=== PATIENT | male | born 1970 | race Caucasian/White ===

== ENCOUNTER 2017-12-16 09:32 | Outpatient (CLI) | payer OTHER ==
[2017-12-16 11:05] LABS: #Basophils 0.1 thou/uL (0.0-0.2); #Eosinphils 0.6 thou/uL (0.0-0.7); #Lymphocytes 2.2 thou/uL (1.20-3.40); #Monocytes 0.6 thou/uL (0.11-0.59); #Neutrophils 2.5 thou/uL (1.40-6.50); %Basophils 1.2 % (0.0-1.0); %Eosinophils 10.1 % (0.0-10.0); %Lymphocytes 37.8 % (21.0-51.0); %Monocytes 9.3 % (0.0-10.0); %Neutrophils 41.6 % (42.0-75.0); Hemoglobin 14.7 g/dL (14.0-18.0); Mean Corpuscular HGB CONC 35.2 g/dL (32.0-36.0); Mean Corpuscular Hemoglobin 31.2 pg (27.0-31.0); Mean Corpuscular Volume 88.7 fl (80.0-94.0); Platelet Count 213 thou/uL (130-400); RBC Distribution Width 12.5 % (11.5-14.5); Red Blood Cell (RBC) Count 4.72 mill/uL (4.70-6.10); White Blood Cell (WBC) Count 5.9 thou/uL (4.8-10.8)
[2017-12-16 11:24] LABS: Anion Gap 10 mmol/L (10-20); BUN (Urea Nitrogen) 12 mg/dL (8.9-20.6); Calc. Creatinine Clearance 0 mL/min (70-130); Calcium 9.4 mg/dL (7.8-10.44); Carbon Dioxide 29 mmol/L (22-29); Chloride 105 mmol/L (98-107); Estimated GFR-MDRD Greater than 90; Glucose 101 mg/dL (70-105); Sodium 140 mmol/L (136-145)
--- NOTE | 2017-12-17 07:22 | EKG ---
Test Reason : Blood Pressure : / mmHG Vent. Rate : 075 BPM Atrial Rate : 075 BPM P-R Int : 152 ms QRS Dur : 086 ms QT Int : 378 ms P-R-T Axes : 069 059 007 degrees QTc Int : 422 ms Normal sinus rhythm minimal inferior ST changes No previous ECGs available Confirmed by DR. Denis HERRMANN ([id number]) on 12/17/2017 7:22:00 AM Referred By: IERO Confirmed By:DR. Denis HERRMANN
== END 2017-12-16 09:33 | disposition home or self-care (01) ==
LOC: LABBT 09:32
PROVIDERS: ATTEND Orthopaedic Surgery
DX: Z01.818 Encounter for other preprocedural examination (principal); S83.206A Unspecified tear of unspecified meniscus, current injury, right knee, initial encounter
CPT/HCPCS: 80048; 85025; 93005; 93010

== ENCOUNTER 2017-12-20 09:22 | Day surgery (SDC) | payer OTHER ==
[2017-12-16 09:47] VITALS: BMI 24.3
[2017-12-20] MEDS ORDERED: PROPOFOL 20 ML ONE (09:30)
[2017-12-20] MEDS ORDERED: CEFAZOLIN/Water 2 GM/20 ML SYRINGE ONE (10:10)
[2017-12-20] MEDS ORDERED: Fentanyl 100 MCG/2 ML VIAL ONE (10:27)
[2017-12-20] MEDS ORDERED: Ondansetron HCl/PF 4 MG/2 ML Vial ONE ×2 (10:27→11:59)
[2017-12-20] MEDS ORDERED: Midazolam HCl 2 mg/2 ml Vial ONE (10:27)
[2017-12-20] MEDS ORDERED: Lidocaine 2% w/Epinephrine 1:200K 20 ML VIAL ONE (11:43)
[2017-12-20] MEDS ORDERED: Bupivacaine HCl 0.5%/Epinephrine 1:200,000/PF 30 ml Vial ONE (11:43)
[2017-12-20] MEDS ORDERED: Dexamethasone 20 MG/5 ML VIAL ONE (11:59)
[2017-12-20] MEDS ORDERED: Lidocaine 1% PF 5 ML VIAL ONE (11:59)
[2017-12-20] MEDS ORDERED: Ketorolac Tromethamine 30 MG/ML VIAL ONE (11:59)
[2017-12-20] MEDS ORDERED: PROPOFOL 200 MG/20 ML VIAL ONE (11:59)
--- NOTE | 2017-12-20 12:39 | OP ---
DATE OF PROCEDURE: 12/20/2017 PREOPERATIVE DIAGNOSIS: Right knee complex tear posterior horn of the medial meniscus. POSTOPERATIVE DIAGNOSIS: Right knee complex tear posterior horn of the medial meniscus. PROCEDURE PERFORMED: Right knee arthroscopy, partial medial meniscectomy. SURGEON: Juan Luis Deal M.D. SOFTWARE IMPLEMENTATION SPECIALIST: None. BLOOD LOSS: Minimal. COMPLICATIONS: None. ANESTHESIA: He did have general anesthetic as well as a local knee block. DISPOSITION: He went to recovery in stable condition. Also, after the arthroscopy was performed, Dr. Shadi Rivera of General Surgery came in to perform a removal of a mass from his right axilla. Please see that operative report for further details. INDICATIONS: Mr. Ayala is a very active 47-year-old male, who comes in complaining of months' wor th of pain, swelling, and catching in the right knee. An MRI scan showed him to have a complex tear of the medial meniscus and at this time he opted to have surgery on this. DESCRIPTION OF PROCEDURE: After all appropriate consent forms were explained and signed, he was take n to operating room and at this time was given a general anesthetic. Once the level of anesthesia wa s appropriate, the leg had a tourniquet placed on it and it was then placed the arthroscopic leg hold er. The limb was then prepped and draped in the standard surgical fashion. The limb was then exsang uinated and tourniquet was taken up to 300 mmHg. An inferolateral portal was then established and th e scope was placed into the knee joint. A needle localization technique was then used to make a medi al working portal. Diagnostic arthroscopy commenced in the notch, the ACL and PCL probed and found t o be intact. The medial compartment showed the cartilage on the femur and tibia to be in excellent c ondition. Anterior horn and the body of the medial meniscus was in good condition; however, the post erior horn was found to have a very complex tear. There was a flap that came from the posterior horn anteriorly. This was taken down with the biter and the shaver. We then lifted up the meniscus and there was also a cleavage component with a flap tear of the bottom cleavage plane and so once this wa s removed, there was just a small tiny plane of meniscus left. The top cleavage plane was overall pr gerardo good quality tissue and at this time, this was left alone. We then turned our attention to the lateral compartment. Femur was in good condition as well as lateral meniscus. The lateral tibial pl ateau was overall in good condition, but there was a large essentially grade 4 fissure in the lateral tibial plateau. Fortunately, there were no significant unstable chondral flaps associated with this . Gutters were swept through and no loose bodies were noted and the patellofemoral joint was also fo und to be in excellent condition. At this time, the scope was removed, knee was drained, and the por tals closed with simple nylon stitch. Bulky sterile dressing was applied and the tourniquet let down . Toes pinked up nicely. The patient was then awakened and taken to the recovery room in stable con dition once Dr. Rivera was done with his portion of the procedure.
--- NOTE | 2017-12-20 12:46 | OP ---
DATE OF PROCEDURE: 12/20/2017 PREOPERATIVE DIAGNOSIS: Soft tissue mass, right axilla. POSTOPERATIVE DIAGNOSIS: Soft tissue mass, right axilla. PROCEDURE: Soft tissue mass excision, 3 cm, right axilla. SURGEON: Cisco Rivera M.D. ANESTHESIA: General. ESTIMATED BLOOD LOSS: Minimal. COMPLICATIONS: None. SPECIMEN: Soft tissue mass. TECHNIQUE: The patient was taken to the operating room and placed supine on the table. At the end o f his knee scope, his right axilla was prepped and draped in a sterile fashion. Transverse incision made over the palpable abnormality in the right axilla, sharply dissection around it. The soft tissu e mass was removed and sent to path for final diagnosis. Appears to be a lipoma. The wound is irrig ated and closed using 3-0 Vicryl, 4-0 Monocryl, and Dermabond. The patient was en route to recovery in stable condition. All sponge counts, needle counts, lap counts were correct.
== END 2017-12-20 14:20 | disposition home or self-care (01) ==
LOC: SDC 09:22
PROVIDERS: ATTEND Orthopaedic Surgery
PROC: 0JB60ZZ Excision of Chest Subcutaneous Tissue and Fascia, Open Approach (ICD-10-PCS; principal; 2017-12-20)
PROC: 0SBC4ZZ Excision of Right Knee Joint, Percutaneous Endoscopic Approach (ICD-10-PCS; principal; 2017-12-20)
DX: S83.231A Complex tear of medial meniscus, current injury, right knee, initial encounter (principal); D17.79 Benign lipomatous neoplasm of other sites
CPT/HCPCS: 88304; G8978-GP-CL; G8979-GP-CL; G8980-GP-CL; J0670; J1100; J1885; J2001; J2250; J2405; J2704; J3010